=== PATIENT | female | born 1980 | race Caucasian/White ===

== ENCOUNTER 2024-02-11 11:46 | Inpatient (IN) | payer MEDICAID ==
[~2024-02-11] VITALS: Ht 174 cm; Wt 92.1 kg
[2024-02-11 12:15] VITALS: BP 139/85; PULSE 117; RESP 18; TEMP 98.9
[2024-02-11 16:00] LABS: GLUCOMETER DEV NAME(LOC) POC.BV; POC SARS-COV2 AG, FIA NEGATIVE (NEGATIVE)
[2024-02-11] MEDS ORDERED: LORazepam 2 MG TABLET PO PRN (17:15)
[2024-02-11] MEDS ORDERED: HALOPERIDOL 5 MG TABLET PO PRN (17:15)
[2024-02-11] MEDS ORDERED: ZOLPIDEM TARTRATE 10 MG TABLET PO PRN (17:15)
[2024-02-11 21:05] VITALS: BP 128/82; PULSE 98; RESP 16; TEMP 97.7
[2024-02-12 08:04] LABS: BASOPHILS % (AUTO) 0.9 % (0.0-2.0); HEMATOCRIT 39.2 % (36-46); HEMOGLOBIN 12.6 g/dL (12.0-16.0); LYMPHOCYTES # (AUTO) 1.9 K/uL (1.0-4.8); LYMPHOCYTES % (AUTO) 25.7 % (22.0-44.0); MEAN CORPUSCULAR HEMOGLOBIN 28.3 pg (26.0-34.0); MEAN CORPUSCULAR HGB CONC 32.3 G/dL (31.0-37.0); MEAN CORPUSCULAR VOLUME 88 fL (80-100); MONOCYTES # (AUTO) 0.5 K/uL (0.1-1.0); MONOCYTES % (AUTO) 6.8 % (2.0-9.0); NEUTROPHILS # (AUTO) 4.7 K/uL (1.8-7.7); NEUTROPHILS % (AUTO) 64.6 % (40.0-70.0); PLATELET COUNT (AUTO) 133 K/uL (150-450); RED BLOOD CELL COUNT(AUTO) 4.47 MIL/uL (4.00-5.20); RED CELL DISTRIBUTION WIDTH 15.1 % (11.5-14.5); WHITE BLOOD COUNT (AUTO) 7.3 K/uL (4.5-11.0)
[2024-02-12 08:42] LABS: ALANINE AMINOTRANSFERASE 26 U/L (12-78); ALBUMIN 3.4 g/dL (3.4-5.0); ALKALINE PHOSPHATASE 80 U/L (46-116); ANION GAP 4 mmol/L (8-16); ASPARTATE AMINOTRANSFERASE 18 U/L (15-37); BILIRUBIN,TOTAL 0.9 mg/dL (0.1-1.0); CALCIUM, TOTAL 8.9 mg/dL (8.8-10.5); CARBON DIOXIDE 28 mmol/L (22-29); CHLORIDE 107 mmol/L (98-107); CHOL/HDL RATIO 2.6 (3.9-5.7); CHOLESTEROL 174 mg/dL (131-200); CREATININE 0.71 mg/dL (0.60-1.30); FREE T4 (FREE THYROXINE) 1.01 ng/dL (0.76-1.46); GLOMERULAR FILTR. RATE CALC > 60 mL/min (>60); GLUCOSE,RANDOM 104 mg/dL (70-110); HCG,QUANTITATIVE 1 mIU/mL (0-6); HDL CHOLESTEROL 67 mg/dL (40-60); LDL CHOL (CALC.) 90 mg/dL (0-130); POTASSIUM 4.2 mmol/L (3.5-5.1); SODIUM SERUM 139 mmol/L (136-145); TOTAL PROTEIN, SERUM 7.3 g/dL (6.4-8.2); TRIGLYCERIDES 84 mg/dL (15-150); UREA NITROGEN, BLOOD 6 mg/dL (7-18)
[2024-02-12 09:00] VITALS: BP 125/76; PULSE 100; RESP 18; TEMP 97.4; O2SAT 100
[2024-02-12] MEDS ORDERED: DIVA-112 PO (11:52)
[2024-02-12] MEDS: DIVALPROEX SODIUM 500 MG DR TABLET PO SCH (12:25)
[2024-02-12] MEDS: RisperiDONE 1 MG TABLET PO SCH (12:25)
[2024-02-12] MEDS ORDERED: DOCUSATE SODIUM 100 MG CAPSULE PO PRN (13:30)
[2024-02-12] MEDS ORDERED: MAGNESIUM HYDROXIDE SUSPENSION 30 ML UDCUP PO PRN (13:30)
[2024-02-12] MEDS ORDERED: MAG HYDROX/ALUMINUM HYD/SIMETH ES 30 ML SUSPENSION UDCUP PO PRN (13:30)
[2024-02-12] MEDS ORDERED: ONDANSETRON HCL 4 MG TABLET PO PRN (13:30)
[2024-02-12] MEDS ORDERED: CloNIDine HCL 0.1 MG TABLET PO PRN (13:30)
[2024-02-12] MEDS ORDERED: PETROLATUM,WHITE 28 GM JELLY TP PRN (13:30)
[2024-02-12] MEDS ORDERED: NICOTINE 14 MG/24 HOUR PATCH TD PRN (13:30)
[2024-02-12] MEDS ORDERED: LOPERAMIDE HCL 2 MG CAPSULE PO PRN (13:30)
[2024-02-12] MEDS ORDERED: ALBUTEROL SULFATE HFA 90 MCG/PUFF 8 GM INHALER IH PRN (13:30)
[2024-02-12] MEDS ORDERED: IBUPROFEN 400 MG TABLET PO PRN (13:30)
[2024-02-12 20:33] VITALS: BP 114/74; PULSE 95; RESP 18; TEMP 97.3; O2SAT 96
[2024-02-13 07:53] LABS: HEMOGLOBIN A1C 5.3 % (3.8-5.6)
[2024-02-13 08:02] LABS: CHOL/HDL RATIO 2.5 (3.9-5.7); THYROID STIMULATING HORMONE 0.7 uIU/mL (0.36-3.74)
[2024-02-13 08:19] VITALS: BP 132/77; PULSE 89; RESP 16; TEMP 97.3; O2SAT 100
[2024-02-13 20:32] VITALS: BP 120/83; PULSE 83; RESP 18; TEMP 97.9; O2SAT 100
[2024-02-14] MEDS: GuaiFENesin/D-METHORPHAN [SUGAR-FREE] 200-20MG/10 ML SYRUP UDCUP PO PRN (01:19)
[2024-02-14 08:37] VITALS: BP 135/103; PULSE 101; RESP 18; TEMP 97.4; O2SAT 99
[2024-02-14] MEDS: ACETAMINOPHEN 325 MG TABLET PO PRN (13:45)
[2024-02-14 20:24] VITALS: BP 143/88; PULSE 86; RESP 16; TEMP 98.3; O2SAT 100
[2024-02-15 09:08] VITALS: BP 135/80; PULSE 110; RESP 18; TEMP 97.6; O2SAT 98
[2024-02-15] MEDS ORDERED: DIVA-112 PO (12:16)
[2024-02-15] MEDS ORDERED: RISP1TAB48 PO (12:16)
== END 2024-02-15 15:15 | disposition home or self-care (01) | DRG 750 ==
LOC: B3A 14:09 → B2S 20:26
PROVIDERS: ADMIT Psychiatry & Neurology Psychiatry; ATTEND Psychiatry & Neurology Psychiatry
PROC: GZHZZZZ Group Psychotherapy (ICD-10-PCS; principal; 2024-02-12)
PROC: GZ51ZZZ Individual Psychotherapy, Behavioral (ICD-10-PCS; 2024-02-12)
PROC: GZ58ZZZ Individual Psychotherapy, Cognitive-Behavioral (ICD-10-PCS; 2024-02-12)
DX: F20.0 Paranoid schizophrenia (principal); G93.40 Encephalopathy, unspecified; D69.6 Thrombocytopenia, unspecified; F15.10 Other stimulant abuse, uncomplicated; Z20.822 Contact with and (suspected) exposure to COVID-19; F12.10 Cannabis abuse, uncomplicated; Z79.899 Other long term (current) drug therapy; Z88.0 Allergy status to penicillin; Z88.5 Allergy status to narcotic agent
CPT/HCPCS: 80053; 80061; 83036; 84439; 84443; 84702; 85025

== ENCOUNTER 2024-02-11 14:29 | Emergency (ER) | payer MEDICAID, OTHER ==
[~2024-02-11] VITALS: Ht 172.7 cm; Wt 94.8 kg
[2024-02-11 14:38] VITALS: TEMP 98.3
[2024-02-11 15:01] LABS: ANION GAP 11 mmol/L (8-16); CALCIUM, TOTAL 8.7 mg/dL (8.8-10.5); CARBON DIOXIDE 24 mmol/L (22-29); CHLORIDE 103 mmol/L (98-107); CREATININE 0.72 mg/dL (0.60-1.30); EOSINOPHILS % (AUTO) 0.3 % (1.0-6.0); GLOMERULAR FILTR. RATE CALC > 60 mL/min (>60); GLUCOSE,RANDOM 98 mg/dL (70-110); HEMATOCRIT 37.6 % (36-46); HEMOGLOBIN 12.3 g/dL (12.0-16.0); LYMPHOCYTES # (AUTO) 2.4 K/uL (1.0-4.8); LYMPHOCYTES % (AUTO) 22.2 % (22.0-44.0); MEAN CORPUSCULAR HEMOGLOBIN 28.3 pg (26.0-34.0); MEAN CORPUSCULAR HGB CONC 32.8 G/dL (31.0-37.0); MEAN CORPUSCULAR VOLUME 86 fL (80-100); MONOCYTES # (AUTO) 0.6 K/uL (0.1-1.0); MONOCYTES % (AUTO) 5.2 % (2.0-9.0); NEUTROPHILS # (AUTO) 7.6 K/uL (1.8-7.7); NEUTROPHILS % (AUTO) 71.3 % (40.0-70.0); PLATELET COUNT (AUTO) 164 K/uL (150-450); POTASSIUM 3.2 mmol/L (3.5-5.1); RED BLOOD CELL COUNT(AUTO) 4.35 MIL/uL (4.00-5.20); RED CELL DISTRIBUTION WIDTH 14.3 % (11.5-14.5); SODIUM SERUM 138 mmol/L (136-145); UREA NITROGEN, BLOOD 9 mg/dL (7-18); WHITE BLOOD COUNT (AUTO) 10.6 K/uL (4.5-11.0)
[2024-02-11 15:12] LABS: ALCOHOL, BLOOD (SERUM) < 3 mg/dL (0-10)
[2024-02-11] MEDS: LORazepam 2 MG TABLET PO ONE (16:49)
[2024-02-11] MEDS: POTASSIUM CHLORIDE 20 MEQ ER TABLET PO ONE (16:49)
[2024-02-11] MEDS: RisperiDONE 1 MG TABLET PO ONE (16:50)
[2024-02-11 17:50] LABS: PH,URINE DRUG SCREEN 5.5 (5.0-8.0)
[2024-02-11 17:55] LABS: ALCOHOL, URINE DRUG SCREEN NEGATIVE (NEGATIVE); AMPHET/METH SCREEN,URINE POSITIVE (NEGATIVE); BARBITURATE SCREEN, URINE NEGATIVE (NEGATIVE); BENZODIAZEPINES SCREEN,URINE NEGATIVE (NEGATIVE); CANNABINOID SCREEN,URINE POSITIVE (NEGATIVE); COCAINE SCREEN,URINE NEGATIVE (NEGATIVE); METHADONE SCREEN, URINE NEGATIVE (NEGATIVE); OPIATE SCREEN,URINE NEGATIVE (NEGATIVE); PHENCYCLIDINE SCREEN,URINE NEGATIVE (NEGATIVE)
[2024-02-11 20:33] VITALS: BP 135/100; PULSE 90; RESP 17
[2024-02-12] MEDS ORDERED: DIVA-112 PO (11:52)
== END 2024-02-12 01:06 | disposition admitted as inpatient to this hospital (09) ==
LOC: EMS 14:35
DX: F20.0 Paranoid schizophrenia (principal); E87.6 Hypokalemia; F32.A Depression, unspecified; F17.210 Nicotine dependence, cigarettes, uncomplicated; Z98.890 Other specified postprocedural states; Z88.0 Allergy status to penicillin; Z88.6 Allergy status to analgesic agent
CPT/HCPCS: 99285; 80048; 84703; 85025; 36415; 80307; G0480; 99284